=== PATIENT | male | born 1965 | race Caucasian/White ===

== ENCOUNTER 2025-09-22 14:34 | Emergency (ER) | payer BC, SELFPAY ==
[2025-09-22 14:37] VITALS: BP 139/88
[2025-09-22 15:04] LABS: Hematocrit 45.9 % (39.0-52.0); Hemoglobin 16.3 g/dL (13.0-18.0); Mean Corp Hgb Conc. 35.5 g/dL (33.0-37.0); Mean Corpuscular Volume 90.5 fL (80.0-94.0); Nucleated Red Blood Cells % 0 % (-); Platelet Count 242 10^3/uL (130-400); Red Cell Dist. Width 12.4 % (11.5-14.5)
[2025-09-22 15:31] LABS: ALT (SGPT) 27 U/L (0-50); AST (SGOT) 25 U/L (17-59); Albumin 5.0 g/dl (3.5-5.0); Alkaline Phosphatase 64 U/L (38-126); Blood Urea Nitrogen 14 mg/dl (9-20); Calcium 9.3 mg/dl (8.4-10.2); Carbon Dioxide 27 mmol/L (22-30); Chloride 101 mmol/L (98-107); Glucose 92 mg/dl (70-99); Potassium 4.8 mmol/L (3.5-5.1); Sodium 136 mmol/L (135-145); Total Protein 8.2 g/dl (6.3-8.2); eGFR > 60.00
[2025-09-22 18:17] VITALS: BMI 29.0
[2025-09-22 18:22] VITALS: BP 137/91
--- NOTE | 2025-09-22 18:49 | ED.GENMED ---
History of Present Illness
General
Chief Complaint: Headache
Time Seen by Provider: 09/22/25 18:40
History of Present Illness
History of Present Illness:
59-year-old male presents to the emergency department for evaluation of persistent headache for the past week. Denies any head trauma or falls. He also notes general head pressure and stuffiness as well as a salty taste on the tongue. Denies any
rhinorrhea or postnasal drip. He does state he ran a 5K last week but had no headache after this. Headache is rated as mild to moderate at this time. Referred to the ED by his primary care physician
Past History
Past History
ED Past Medical History: Arrthythmia
ED Past Surgical History: None
Social History
Tobacco: Non-smoker
Alcohol: Occasional
Drug: None
Personal:
Living: with family
Employment: Employed
Family History
Family History: Other
Review of Systems
Review of Systems
Allergies reviewed?: Yes
All Other Systems: ROS reviewed and negative except as documented in HPI and ROS
Phy Exam
Physical Exam
Physical Exam:
GEN: Well appearing, NAD, WDWN
HEENT: Oral mucosa moist, no scleral icterus, no nasal congestion
Cardiac: Regular rate
Lung: No respiratory distress, no tachypnea
MSK: No gross deformity or injuries
Skin: Good color, no pallor or jaundice, no rashes
Neuro: AO x3; CN II-XII grossly intact. BUE strength 5/5 in all jean baptiste, sensation intact and symmetric. BLE strength 5/5 in all jean baptiste, sensation intact and symmetric
Psych: Calm, cooperative
Course
Orders/Labs/Results
Orders:
Orders
09/22/25 14:43
CT Head W/o Iv Contrast Urgent
Comment:
Reason For Exam: headache, blurry vision, salty taste in mouth
09/22/25 14:46
Complete Blood Count/With Diff Urgent
Comprehensive Metabolic Panel Urgent
Abnormal Lab Results
09/22/25
14:46
MCH 32.1 H pg
(27.0-31.0)
09/22/25 14:46
09/22/25 14:46
Vital Signs
Initial and Last Documented VS:
Initial Vital Signs
Temp Pulse Resp BP Pulse Ox
97.9 F 74 16 139/88 98
09/22/25 14:37 09/22/25 14:37 09/22/25 14:37 09/22/25 14:37 09/22/25 14:37
Last Documented Vital Signs
Temp Pulse Resp BP Pulse Ox
97.9 F 73 18 137/91 98
09/22/25 14:37 09/22/25 18:22 09/22/25 18:22 09/22/25 18:22 09/22/25 18:50
MDM/Problems Addressed
MDM/Problems Addressed:
Patient does not have any rhinorrhea concerning for CSF leak, the salty taste in the mouth appears to be on the tongue and not in the oropharynx. Given lack of head trauma highly doubt CSF leak. CT of the head is reassuring and labs are
unremarkable. CT does show mild sinusitis which may be the cause of his symptoms and thus we will treat with a course of antibiotics
*Pulse Oximetry
SaO2: 98
Oxygen Mode of Delivery: Room air
Patient hypoxic: no
*Critical Care Note
Total Time (30-74mins, 75-104mins- exclusive of procedures): Not Applicable
ED Attending Note
-
Portions of this chart may have been created with voice recognition software.� Occasional wrong word or��sound alike� substitutions may have occurred due to the inherent limitations of voice recognition software.
Discharge Plan
Departure
Patient Disposition: Home (Routine Discharge)
Date of Disposition: 09/22/25
Time of Disposition: 18:49
Patient with high blood pressure during this ER visit?: No
Discharge Problem:
Sinusitis
Instructions: Sinusitis in adults - ED (DC)
Prescriptions:
New
doxycycline hyclate 100 mg tablet
100 mg PO BID Qty: 10 0RF
Referrals:
Kiet Haley MD [Family Provider, Internal Medicine]
Interventions
Interventions:
*Risk Screen - Suicide Last Done: 09/22/25 14:37
*General Assessment Last Done: 09/22/25 14:37
*Neglect/Abuse Screening Last Done: 09/22/25 14:37
*ED COVID-19 Vaccine History Last Done: 09/22/25 14:37
*ED Influenza Vaccine History Last Done: 09/22/25 14:37
[facility] Fall Risk Assessment Tool Last Done: 09/22/25 18:17
*Nursing Disposition Last Done: 09/22/25 18:50
ED- Neurological Assessment Last Done: 09/22/25 18:17
Discharge Date and Time
Discharge Date/Time: 09/22/25 18:50
Print Language: CHINESE
== END 2025-09-22 18:50 | disposition home or self-care (01) ==
LOC: EMR 14:34
PROVIDERS: EMERGENCY PHYSICIAN Emergency Medicine; FAMILY PHYSICIAN Internal Medicine
DX: J32.9 Chronic sinusitis, unspecified (principal)
CPT/HCPCS: 99284; 70450; 80053; 85025